=== PATIENT | female | born 1990 | race Caucasian/White ===

== ENCOUNTER 2017-12-23 08:19 | Emergency (ER) | payer MEDICAID ==
[~2017-12-23] VITALS: Ht 162.6 cm; Wt 50.8 kg
[2017-12-23 08:24] VITALS: Ht 162.6 cm; Wt 50.8 kg
[2017-12-23 10:53] VITALS: BP 122/85
== END 2017-12-23 10:53 | disposition home or self-care (01) ==
LOC: ED 08:19
DX: R10.13 Epigastric pain (principal)

== ENCOUNTER 2018-02-27 04:37 | Emergency (ER) | payer OTHER ==
[~2018-02-27] VITALS: Ht 162.6 cm; Wt 51.7 kg
[2018-02-27 04:42] VITALS: Ht 162.6 cm; Wt 51.7 kg
[2018-02-27 07:15] VITALS: BP 113/71
== END 2018-02-27 07:15 | disposition home or self-care (01) ==
LOC: ED 04:37
DX: H16.002 Unspecified corneal ulcer, left eye (principal)